=== PATIENT | female | born 1965 | race Caucasian/White ===

== ENCOUNTER 2017-09-09 18:57 | Emergency (ER) | payer OTHER, MEDICAID ==
[2017-09-09 20:53] LABS: URINE BLOOD (Dip) POC Negative (NEGATIVE); URINE GLUCOSE (Dip) POC Negative (NEGATIVE); URINE KETONES (Dip) POC Negative (NEGATIVE); URINE LEUKOCYTE EST (Dip) POC Negative (NEGATIVE); URINE NITRITE (Dip) POC Negative (NEGATIVE); URINE TOTAL PROTEIN POC 1+ (NEGATIVE)
[2017-09-09 20:53] LABS: URINE PH (Dip) POC 7.5 (5.0-8.5)
[2017-09-09 21:01] LABS: ADD MAN DIFF? NO
[2017-09-09 21:06] LABS: WHITE BLOOD COUNT 9.6 10^3/ul (4.8-10.8)
[2017-09-09 21:06] LABS: BASOPHILS % 0.4 % (0.0-2.0); EOSINOPHILS # 0.1 10^3/ul (0.0-0.5); EOSINOPHILS % 0.5 % (0.0-7.0); HEMATOCRIT 39.9 % (37.0-47.0); HEMOGLOBIN 12.6 g/dl (12.0-16.0); LYMPHOCYTES # 3.1 10^3/ul (0.8-2.9); LYMPHOCYTES % 32.4 % (15.0-51.0); MEAN CORPUSCULAR HEMOGLOBIN 28.4 pg (29.0-33.0); MEAN CORPUSCULAR HGB CONC 31.6 g/dl (32.0-37.0); MEAN CORPUSCULAR VOLUME 89.9 fl (82.0-101.0); MEAN PLATELET VOLUME 9.8 fl (7.4-10.4); MONOCYTE # 0.7 10^3/ul (0.3-0.9); NEUTROPHIL # 5.7 10^3/ul (1.6-7.5); NEUTROPHILS % 59.5 % (39.0-77.0); PLATELET COUNT 342 10^3/UL (140-415); RED BLOOD COUNT 4.44 10^6/ul (4.20-5.40); RED CELL DISTRIBUTION WIDTH 15.2 % (11.5-14.5)
[2017-09-09 21:10] LABS: ADD UMIC YES; UR ASCORBIC ACID 40 mg/dL (NEGATIVE); UR BILIRUBIN (Dip) NEGATIVE (NEGATIVE); UR BLOOD (Dip) NEGATIVE (NEGATIVE); UR CLARITY CLOUDY (CLEAR); UR COLOR AMBER (YELLOW); UR GLUCOSE (Dip) NEGATIVE (NEGATIVE); UR KETONES (Dip) NEGATIVE (NEGATIVE); UR LEUKOCYTE ESTERASE (Dip) NEGATIVE Leu/ul (NEGATIVE); UR MUCUS FEW /HPF (NONE SEEN); UR NITRITE (Dip) NEGATIVE (NEGATIVE); UR RBC 1 /HPF (0-5); UR TOTAL PROTEIN (Dip) NEGATIVE (NEGATIVE); UR UROBILINOGEN (Dip) 1+ mg/dL (NEGATIVE); UR WBC 1 /HPF (0-5)
[2017-09-09] MEDS: ACETAMINOPHEN 325 MG TAB PO (21:29)
[2017-09-09] MEDS: KETOROLAC 30 MG INJ IM (21:29)
== END 2017-09-09 23:29 | disposition home or self-care (01) ==
LOC: FTE 18:57
DX: N76.0 Acute vaginitis (principal); D25.9 Leiomyoma of uterus, unspecified
CPT/HCPCS: 76830; 76856; 81001; 81003; 81025; 85025; 87210; 96372; 99285-25

== ENCOUNTER → 2018-06-06 | Outpatient (CLI) | payer OTHER | END | disposition home or self-care (01) | LOC: HKI 15:39 | DX: M25.562 Pain in left knee (principal); M25.561 Pain in right knee | CPT/HCPCS: 77073 ==

== ENCOUNTER 2018-06-23 07:15 | Inpatient (IN) | payer OTHER ==
[2018-07-18] MEDS: LACTATED RINGER'S 1,000 ML IV* (08:30)
[2018-07-18] MEDS: CEFAZOLIN 2 GM/50 ML (PMX) 50 ML IVPB ×2 (08:30→19:21)
[2018-07-18] MEDS: ONDANSETRON 4 MG INJ IV ×2 (08:45→19:41)
[2018-07-18] MEDS: CELECOXIB 200 MG CAP PO (08:46)
[2018-07-18] MEDS: GABAPENTIN 300 MG CAP PO ×2 (08:46→21:45)
[2018-07-18] MEDS: LANSOPRAZOLE 30 MG CAP PO (08:47)
[2018-07-18] MEDS: ACETAMINOPHEN 1000MG/100ML IV 100 ML IVPB ×2 (09:33→18:48)
[2018-07-18] MEDS ORDERED: DIPHENHYDRAMINE 50 MG INJ IV ×2 (12:00→18:30)
[2018-07-18] MEDS ORDERED: ALBUTEROL 0.083% (NEB) 2.5 MG/3 ML AMP HHN (12:00)
[2018-07-18] MEDS ORDERED: DEXAMETHASONE 4 MG/ML 5 ML INJ (12:00)
[2018-07-18] MEDS ORDERED: HYDROmorphONE 1 MG/5 ML IV SYRINGE IV (12:00)
[2018-07-18] MEDS ORDERED: MEPERIDINE 25 MG INJ IV (12:00)
[2018-07-18] MEDS ORDERED: NEOSTIGMINE 3 MG/3 ML SYRINGE (12:00)
[2018-07-18] MEDS ORDERED: FENTAnyl 50 MCG/ML VIAL IV ×2 (12:00)
[2018-07-18] MEDS ORDERED: TRANEXAMIC ACID 1 GM/100 ML (PMX) (12:00)
[2018-07-18] MEDS ORDERED: DESFLURANE 15 MIN ×2 (12:00)
[2018-07-18] MEDS ORDERED: GLYCOPYRROLATE 0.4 MG INJ (12:00)
[2018-07-18] MEDS ORDERED: morphine SULFATE/PF (10 MG/10 ML) INJ (12:04)
[2018-07-18] MEDS ORDERED: MIDAZOLAM 1 MG/ML 2 ML INJ (12:04)
[2018-07-18] MEDS ORDERED: FENTAnyl 50 MCG/ML VIAL ×2 (13:07→16:04)
[2018-07-18] MEDS: TRANEXAMIC ACID 1GM/100ML(PMX) 100 ML AT INCISION X1 IVPB ×2 (13:11)
[2018-07-18] MEDS ORDERED: LIDOCAINE 100 MG SYRINGE (13:24)
[2018-07-18] MEDS ORDERED: CEFAZOLIN 1 GM INJ (13:24)
[2018-07-18] MEDS ORDERED: SUCCINYLCHOLINE CHLORIDE 100 MG/5 ML SYG IV (13:24)
[2018-07-18] MEDS ORDERED: ROCURONIUM 50 MG INJ (13:24)
[2018-07-18] MEDS ORDERED: PROPOFOL 20 ML (13:24)
[2018-07-18] MEDS: TRANEXAMIC ACID 1GM/100ML(PMX) 100 ML AT CLOSURE X1 IVPB ×2 (16:40)
[2018-07-18] MEDS ORDERED: ROPIVACAINE 0.5 % 30 ML VIAL (17:44)
[2018-07-18] MEDS ORDERED: NACL 0.9% 3 ML SYG IV (18:30)
[2018-07-18] MEDS ORDERED: BETHANECHOL 25 MG TAB PO (18:30)
[2018-07-18] MEDS ORDERED: NALOXONE (0.4 MG/ML) INJ IV (18:30)
[2018-07-18] MEDS: HYDROmorphONE 1 MG/5 ML IV SYRINGE IV ×2 (18:49→19:56)
[2018-07-18] MEDS: LACTATED RINGER'S 1,000 ML IV ×2 (18:50→21:10)
[2018-07-18] MEDS: DOCUSATE SODIUM 100 MG CAP PO (19:36)
[2018-07-18] MEDS: KETOROLAC 15 MG INJ IV (19:36)
[2018-07-18] MEDS: METOCLOPRAMIDE 10 MG INJ IV (19:53)
[2018-07-18] MEDS: ACETAMINOPHEN 500 MG TAB PO (21:45)
[2018-07-19] MEDS: CEFAZOLIN 2 GM/50 ML (PMX) 50 ML IVPB ×2 (03:06→10:19)
[2018-07-19 05:22] LABS: ADD MAN DIFF? NO
[2018-07-19] MEDS: ACETAMINOPHEN 500 MG TAB PO ×3 (05:28→21:25)
[2018-07-19 05:29] LABS: BASOPHILS % 0.1 % (0.0-2.0); HEMATOCRIT 26.3 % (37.0-47.0); HEMOGLOBIN 8.7 g/dl (12.0-16.0); LYMPHOCYTES # 1.3 10^3/ul (0.8-2.9); MEAN CORPUSCULAR HGB CONC 33.1 g/dl (32.0-37.0); MEAN CORPUSCULAR VOLUME 87.7 fl (82.0-101.0); MONOCYTE # 0.6 10^3/ul (0.3-0.9); MONOCYTES % 6.1 % (0.0-11.0); NEUTROPHIL # 7.9 10^3/ul (1.6-7.5); NEUTROPHILS % 80.5 % (39.0-77.0); PLATELET COUNT 228 10^3/UL (140-415); RED CELL DISTRIBUTION WIDTH 14.5 % (11.5-14.5)
[2018-07-19 05:29] LABS: WHITE BLOOD COUNT 9.9 10^3/ul (4.8-10.8)
[2018-07-19 05:40] LABS: ANION GAP 5 (5-13); BLOOD UREA NITROGEN 12 mg/dl (7-20); CALCIUM 8.7 mg/dl (8.4-10.2); CARBON DIOXIDE 26 mmol/L (21-31); CHLORIDE 112 mmol/L (97-110); Estimated GFR > 60 mL/min (>60); GLUCOSE 115 mg/dl (70-220); POTASSIUM 4.1 mmol/L (3.5-5.1); SODIUM 143 mmol/L (135-144)
[2018-07-19] MEDS: ASPIRIN (EC) 81 MG TAB PO ×2 (08:46→20:06)
[2018-07-19] MEDS: DOCUSATE SODIUM 100 MG CAP PO ×2 (08:47→20:06)
[2018-07-19 09:37] LABS: ADD UMIC YES; UR ASCORBIC ACID NEGATIVE (NEGATIVE); UR BILIRUBIN (Dip) NEGATIVE (NEGATIVE); UR BLOOD (Dip) 2+ mg/dL (NEGATIVE); UR CLARITY CLEAR (CLEAR); UR COLOR COLORLESS (YELLOW); UR GLUCOSE (Dip) NEGATIVE (NEGATIVE); UR KETONES (Dip) NEGATIVE (NEGATIVE); UR LEUKOCYTE ESTERASE (Dip) NEGATIVE Leu/ul (NEGATIVE); UR NITRITE (Dip) NEGATIVE (NEGATIVE); UR RBC 23 /HPF (0-5); UR SPECIFIC GRAVITY (Dip) 1.006 (1.003-1.030); UR TOTAL PROTEIN (Dip) NEGATIVE (NEGATIVE); UR UROBILINOGEN (Dip) NEGATIVE (NEGATIVE); UR WBC 3 /HPF (0-5)
[2018-07-19] MEDS: LEFLUNOMIDE 20 MG TAB PO (10:38)
[2018-07-19] MEDS: oxyCODONE 5 MG TAB PO ×3 (16:39→18:51)
[2018-07-19] MEDS: KETOROLAC 15 MG INJ IV (17:02)
[2018-07-19] MEDS: LACTATED RINGER'S 1,000 ML IV (19:21)
[2018-07-19] MEDS: HYDROmorphONE 1 MG/ML SYG IV (20:03)
[2018-07-19] MEDS: GABAPENTIN 300 MG CAP PO (20:05)
[2018-07-20] MEDS: oxyCODONE 5 MG TAB PO ×5 (01:07→23:07)
[2018-07-20] MEDS: KETOROLAC 15 MG INJ IV ×2 (02:52→18:02)
[2018-07-20] MEDS: HYDROmorphONE 1 MG/ML SYG IV ×2 (03:34→09:08)
[2018-07-20 05:01] LABS: ADD MAN DIFF? NO
[2018-07-20 05:11] LABS: BASOPHILS % 0.3 % (0.0-2.0); EOSINOPHILS # 0.1 10^3/ul (0.0-0.5); EOSINOPHILS % 0.7 % (0.0-7.0); HEMATOCRIT 24.4 % (37.0-47.0); HEMOGLOBIN 7.8 g/dl (12.0-16.0); LYMPHOCYTES # 2.3 10^3/ul (0.8-2.9); LYMPHOCYTES % 32.4 % (15.0-51.0); MEAN CORPUSCULAR HEMOGLOBIN 28.8 pg (29.0-33.0); MONOCYTE # 0.5 10^3/ul (0.3-0.9); MONOCYTES % 7.1 % (0.0-11.0); NEUTROPHIL # 4.2 10^3/ul (1.6-7.5); NEUTROPHILS % 59.4 % (39.0-77.0); PLATELET COUNT 216 10^3/UL (140-415); RED BLOOD COUNT 2.71 10^6/ul (4.20-5.40)
[2018-07-20] MEDS: PANTOPRAZOLE (EC) 40 MG TAB PO (05:25)
[2018-07-20] MEDS: ACETAMINOPHEN 500 MG TAB PO ×3 (05:25→22:00)
[2018-07-20 05:31] LABS: ANION GAP 5 (5-13); BLOOD UREA NITROGEN 13 mg/dl (7-20); CALCIUM 8.7 mg/dl (8.4-10.2); CARBON DIOXIDE 28 mmol/L (21-31); CHLORIDE 111 mmol/L (97-110); CREATININE 0.52 mg/dl (0.44-1.00); Estimated GFR > 60 mL/min (>60); GLUCOSE 106 mg/dl (70-220); POTASSIUM 3.6 mmol/L (3.5-5.1); SODIUM 144 mmol/L (135-144)
[2018-07-20] MEDS: LACTATED RINGER'S 1,000 ML IV (07:51)
[2018-07-20] MEDS: LEFLUNOMIDE 20 MG TAB PO (08:10)
[2018-07-20] MEDS: DOCUSATE SODIUM 100 MG CAP PO ×2 (08:10→20:42)
[2018-07-20] MEDS: ASPIRIN (EC) 81 MG TAB PO ×2 (08:10→20:38)
[2018-07-20 10:19] LABS: IRON 32 ug/dl (35-150)
[2018-07-20 10:28] LABS: % IRON SATURATION 11 % SAT (22-52); TOTAL IRON BINDING CAPACITY 289 ug/dl (241-421)
[2018-07-20 12:20] LABS: FERRITIN 40.1 ng/ml (11.1-264.0)
[2018-07-20] MEDS: GABAPENTIN 300 MG CAP PO (20:38)
[2018-07-20] MEDS: MAGNESIUM HYDROXIDE 30ML CUP PO (20:38)
[2018-07-20] MEDS: SENNA/DOCUSATE NA (8.6MG/50MG) TAB PO (20:38)
[2018-07-21] MEDS: oxyCODONE 5 MG TAB PO ×3 (02:55→13:02)
[2018-07-21 05:04] LABS: ADD MAN DIFF? NO
[2018-07-21 05:08] LABS: BASOPHILS % 0.3 % (0.0-2.0); EOSINOPHILS # 0.1 10^3/ul (0.0-0.5); EOSINOPHILS % 1.6 % (0.0-7.0); HEMATOCRIT 24.5 % (37.0-47.0); HEMOGLOBIN 7.7 g/dl (12.0-16.0); LYMPHOCYTES % 31.4 % (15.0-51.0); MEAN CORPUSCULAR HEMOGLOBIN 28.2 pg (29.0-33.0); MEAN CORPUSCULAR HGB CONC 31.4 g/dl (32.0-37.0); MEAN CORPUSCULAR VOLUME 89.7 fl (82.0-101.0); MEAN PLATELET VOLUME 9.7 fl (7.4-10.4); MONOCYTE # 0.3 10^3/ul (0.3-0.9); MONOCYTES % 5.1 % (0.0-11.0); NEUTROPHILS % 61.4 % (39.0-77.0); PLATELET COUNT 203 10^3/UL (140-415); RED BLOOD COUNT 2.73 10^6/ul (4.20-5.40); RED CELL DISTRIBUTION WIDTH 15.1 % (11.5-14.5)
[2018-07-21 05:08] LABS: WHITE BLOOD COUNT 6.4 10^3/ul (4.8-10.8)
[2018-07-21] MEDS: PANTOPRAZOLE (EC) 40 MG TAB PO (05:29)
[2018-07-21] MEDS: ACETAMINOPHEN 500 MG TAB PO ×2 (05:29→14:14)
[2018-07-21 05:31] LABS: ANION GAP 5 (5-13); BLOOD UREA NITROGEN 11 mg/dl (7-20); CALCIUM 8.3 mg/dl (8.4-10.2); CARBON DIOXIDE 30 mmol/L (21-31); CHLORIDE 105 mmol/L (97-110); CREATININE 0.52 mg/dl (0.44-1.00); Estimated GFR > 60 mL/min (>60); GLUCOSE 93 mg/dl (70-220); POTASSIUM 4.3 mmol/L (3.5-5.1); SODIUM 140 mmol/L (135-144)
[2018-07-21] MEDS: ONDANSETRON 4 MG INJ IV (08:17)
[2018-07-21] MEDS: ASPIRIN (EC) 81 MG TAB PO (08:19)
[2018-07-21] MEDS: DOCUSATE SODIUM 100 MG CAP PO (08:19)
[2018-07-21] MEDS: LEFLUNOMIDE 20 MG TAB PO (08:20)
[2018-07-21] MEDS: PROCHLORPERAZINE 10 MG INJ IV (11:31)
[2018-07-21] MEDS: BISACODYL 10 MG SUPP PR (14:14)
[2018-07-21] MEDS: NA PHOSPHATE/BIPHOS 133 ML ENEMA PR (16:44)
== END 2018-07-21 18:20 | disposition home health service (06) | DRG 470 ==
LOC: REC 07-18 07:27 → SDS 07:15 → REC 07-18 07:27 → MS1 07-18 20:20
PROVIDERS: Orthopaedic Surgery Adult Reconstructive Orthopaedic Surgery
PROC: 0SRD0J9 Replacement of Left Knee Joint with Synthetic Substitute, Cemented, Open Approach (ICD-10-PCS; principal; 2018-07-18 12:00)
DX: M06.862 Other specified rheumatoid arthritis, left knee (principal); D64.9 Anemia, unspecified; Z79.01 Long term (current) use of anticoagulants
CPT/HCPCS: 73560; 80048; 81001; 82728; 83540; 85025; 86850; 86900; 86901; 87081; 87086; 88304; 88311; 97161; 97167; C1776